=== PATIENT | male | born 1975 | race Caucasian/White ===

== ENCOUNTER 2017-08-19 15:09 | Emergency (ER) | payer OTHER ==
[~2017-08-19] VITALS: Ht 182.9 cm; Wt 113.4 kg
[2017-08-19 15:13] VITALS: BP 133/89
--- NOTE | 2017-08-19 16:05 | ED GI/GU/ABDOMINAL COMPLAINT ---
History of Present Illness General Chief Complaint: General Adult Stated Complaint: SENT IN BY PCP FOR ?HEMORRHOIDS Source: patient, old records Exam Limitations: no limitations Vital Signs & Intake/Output Vital Signs & Intake/Output Vital Signs Date Time Temp Pulse Resp B/P B/P Pulse O2 O2 Flow FiO2 Mean Ox Delivery Rate 08/19 1513 98.6 73 18 133/89 98 Room Air Allergies Coded Allergies: No Known Allergies (08/19/17) Reconcile Medications Anusol Hc (Anusol-Hc) 25 MG SUPP.RECT 1 SUP RC BID hemorrhoid Oxycodone HCl/Acetaminophen (Percocet 5-325 MG Tablet) 5 MG-325 MG TABLET 1 TAB PO BID PRN pain Triage Note: 42 YO MALE TO TRIAGE FOR EVAL OF HEMMORIDS. STATES HE SAW HIS PCP THIS AM WHO STATED THEY NEED TO BE SURGICALLY REMOVED. Triage Nurses Notes Reviewed? yes Onset: Abrupt Duration: week(s): (1), constant Timing: recent history Quality/Severity: aching Severity Numbers: 8 Location: rectal Radiation: no radiation Activities at Onset: none No Modifying Factors: none Associated Symptoms: denies HPI: 42-year-old male presents to the ER for evaluation complaining of a hemorrhoid. He states he's had history of internal hemorrhoids however over about the past week he's had worsening pain comes on after a bowel movement. He denies any blood in his bowel movement or in the bowl after going. No fever no chills no abdominal pain Patient states he went to his primary care physician who referred him to the ER as he was unable to get in with the specialist. Past History Travel History Traveled to [place] past 21 day No Medical History Any Pertinent Medical History? 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 No Review of Systems Review of Systems Constitutional: Reports: see HPI. Comments Review of systems: See HPI, All other systems negative. Constitutional, no chills no fever, HEENT: no sore throat Cardiovascular: No chest pain Skin: no rashes, no change in skin Respiratory: no cough GI: no bloating/constipation Muscle skeletal: No joint pain, no back pain, no neck pain, Neurologic: , no headache Heme/endocrine: no bleeding Physical Exam Physical Exam General Appearance: well developed/nourished, alert, awake Gastrointestinal: non-tender Comments: Well-developed well-nourished patient in no apparent distress. HEENT: Atraumatic, extraocular motion intact Neck: Supple, FROM Back: FROM Respiratory: No respiratory distress. Patient speaking in full complete sentences. Breath sounds clear to auscultation bilaterally: NO W/R/R Rectal: External nonthrombosed hemorrhoid, no fissure. No abscess Extremities: full range of motion Neuro: awake, alert, and oriented to person, place and time. There were no obvious focal neurologic abnormalities. Skin: Warm & dry;No appreciable rash on exposed skin Psych: Mood affect normal, normal memory normal judgment. Core Measures ACS in differential dx? No Sepsis Present: No Sepsis Focused Exam Completed? No Progress Differential Diagnosis: hemorrhoid, fissure, fistula Plan of Care: Discussed patient plan of care need for follow-up with either general surgery or colorectal surgery information provided for the same we'll send him home with Percocet I advised the need to take stool softeners drink fluids, anusol suppository rx called in. I answered all his questions they feel comfortable plan cleared for discharge Initial ED EKG: none Departure Departure Time of Disposition: 1617 Disposition: HOME OR SELF CARE Condition: Stable Clinical Impression Primary Impression: Hemorrhoid Referrals: Earnest Connor DO,Ernie Gutierrez MD,Segundo Cannon MD,Ernie (PCP/Family) Additional Instructions: Follow-up with colorectal surgeon Dr. MAYNARD or general surgeon dr gutierrez today. anusol suppository, percocet for breakthrough pain- use caution this may be constipated. Use [id number] stool softeners drink plenty of fluids continue with sitz baths. Departure Forms: Customer Survey General Discharge Information Prescriptions: Current Visit Scripts Anusol Hc (Anusol-Hc) 1 SUP RC BID #14 SUP Oxycodone HCl/Acetaminophen (Percocet 5-325 MG Tablet) 1 TAB PO BID PRN pain #10 TAB
[2017-08-19] MEDS ORDERED: PERCOCET 5-3251 EACH PO (16:23)
[2017-08-19] MEDS ORDERED: ANUSOL-HC25 M1 RC (16:23)
== END 2017-08-19 16:27 ==
LOC: ERH 15:09
DX: K64.4 Residual hemorrhoidal skin tags (principal)